=== PATIENT | male | born 1965 | race American Indian/Alaskan Native ===

== ENCOUNTER 2022-03-31 11:10 | Emergency (ER) | payer MEDICAID, OTHER ==
[2022-03-31] MEDS ORDERED: Sodium Chloride 0.9% 10 ML Syringe FLUSH PRN (11:18)
[2022-03-31] MEDS ORDERED: Sodium Chloride 0.9% 1,000 ML IV ONE ×3 (11:19→12:20)
[2022-03-31 11:41] VITALS: BP 130/95; PULSE 145
[2022-03-31] MEDS ORDERED: Acetaminophen 500 MG Tab PO ONE (11:45)
[2022-03-31] MEDS ORDERED: cefTRIAXone 2 GM in Sodium Chloride 0.9% 100 ML IV ONE (11:58)
[2022-03-31 12:04] LABS: ANION GAP 27.5 mEq/L (7-13); CHLORIDE,CL 94 mmol/L (98-107); SODIUM,NA 133 mmol/L (136-145)
[2022-03-31 12:05] LABS: ESTIMATED GFR 27 mL/min (>=60)
[2022-03-31] MEDS ORDERED: Piperacillin/Tazobactam 4.5 GM in Sodium Chloride 0.9% 100 ML IV ONE (12:06)
[2022-03-31 12:17] LABS: BASE EXCESS ARTERIAL -13 mmol/L ((-2)-(+3)); BICARBONATE,ARTERIAL 11.4 mmol/L (22-26); O2 SATURATION ARTERIAL 93 % (95-100); PCO2 ARTERIAL 24 mmHg (35-45); PO2 ARTERIAL 66 mmHg (70-100)
[2022-03-31 12:18] LABS: ALLEN TEST PERFORMED
[2022-03-31] MEDS ORDERED: Morphine 2 MG/ML SYRINGE IVPUSH ONE (12:36)
[2022-03-31 12:40] LABS: O2 DELIVERY DEVICE NASAL CANNULA
[2022-03-31 12:41] LABS: O2 FLOW RATE 10
[2022-03-31] MEDS ORDERED: Midazolam 1 MG/ML 2 ML SDV ONE ×2 (13:11→13:19)
[2022-03-31] MEDS ORDERED: fentaNYL 100 MCG/2 ML SDV ONE (13:11)
[2022-03-31] MEDS ORDERED: propofoL 100 ML IV SCH (13:30)
[2022-03-31 13:59] LABS: AMPHETAMINES,URINE NEGATIVE (NEGATIVE); BARBITURATES,URINE NEGATIVE (NEGATIVE); BENZODIAZEPINE,URINE NEGATIVE (NEGATIVE); MDMA (ECSTASY), URINE NEGATIVE (NEGATIVE); METHADONE,URINE NEGATIVE (NEGATIVE); METHAMPHETAMINES,URINE NEGATIVE (NEGATIVE); OPIATES,URINE NEGATIVE (NEGATIVE); OXYCODONE,URINE NEGATIVE (NEGATIVE); PHENCYCLIDINE,URINE NEGATIVE (NEGATIVE); TCA,URINE NEGATIVE (NEGATIVE)
[2022-03-31] MEDS ORDERED: propofoL 100 ML ONE (14:59)
== END 2022-03-31 15:40 ==
LOC: DL.ED 11:10
DX: A41.9 Sepsis, unspecified organism (principal); J18.9 Pneumonia, unspecified organism; N17.9 Acute kidney failure, unspecified; E87.20 Acidosis, unspecified; J44.9 Chronic obstructive pulmonary disease, unspecified; Z20.822 Contact with and (suspected) exposure to COVID-19
CPT/HCPCS: 31500; 36415; 36600; 43752; 51702; 71045; 80053; 80305; 80307; 81001; 82803; 83605; 83735; 84145; 85025; 86140; 87040; 87070; 87077; 87186; 87205; 87635; 93005; 96361; 96365; 96366; 96368; 96375; 99285; A9270; J2270; J2543; J2704; J3370; J7030; J7040; U0002

== ENCOUNTER 2024-01-01 22:03 | Emergency (ER) | payer SELFPAY ==
[2024-01-01 22:20] VITALS: BP 141/93; PULSE 88
[2024-01-01] MEDS: Ketorolac 30 MG/ML SDV IM ONE (23:25)
== END 2024-01-01 23:31 | disposition home or self-care (01) ==
LOC: DL.ED 22:03
DX: M79.602 Pain in left arm (principal); M79.601 Pain in right arm; M79.605 Pain in left leg; M79.604 Pain in right leg; J44.9 Chronic obstructive pulmonary disease, unspecified; Z90.49 Acquired absence of other specified parts of digestive tract
CPT/HCPCS: 96372; 99283; J1885

== ENCOUNTER 2024-02-03 09:16 | Emergency (ER) | payer SELFPAY ==
[2024-02-03] MEDS ORDERED: Sodium Chloride 0.9% 10 ML Syringe FLUSH PRN (09:17)
[2024-02-03 09:47] LABS: BASOPHILS PERCENT AUTO 1.1 % (0.0-1.0); HEMATOCRIT 38.7 % (40.0-54.0); HEMOGLOBIN 13.6 g/dL (14.0-18.0); LYMPHOCYTES PERCENT AUTO 38.9 % (20.5-50.1); MEAN CORPUSCULAR HEMOGLOBIN 33.3 pg (27.0-34.0); MEAN CORPUSCULAR HGB CONC 35.1 g/dL (33.0-35.0); MEAN CORPUSCULAR VOLUME 94.9 fL (80-100); MONOCYTES PERCENT AUTO 6.6 % (2-8); NEUTROPHILS PERCENT AUTO 50.4 % (42.2-75.2); PLATELET COUNT,PLT 77 10^3/uL (150-450); RED BLOOD CELL COUNT 4.08 10^6/uL (4.6-6.2); WHITE BLOOD CELL COUNT,WBC 7.4 10^3/uL (5.0-10.0)
[2024-02-03 09:50] VITALS: BP 146/109; PULSE 105
[2024-02-03 09:57] LABS: ALBUMIN 3.2 g/dL (3.4-5.0); BILIRUBIN TOTAL 1.6 mg/dL (0.2-1.0); BUN/CREATININE RATIO 8.7 (No establ ref range); CALCIUM 8.5 mg/dL (8.5-10.1); CREATININE 1.03 mg/dL (0.70-1.30); EST CRCL DRUG DOSING (CG) 81.23 mL/min; MAGNESIUM 1.6 mg/dL (1.8-2.4)
[2024-02-03 09:58] LABS: A/G RATIO 0.47
[2024-02-03 10:02] LABS: INR 1.2 (0.9-1.2); PROTHROMBIN TIME 11.9 SEC (9.0-12.0); PTT,PARTIAL THROMBOPLSTIN TIME 30.4 SEC (22.0-34.0)
[2024-02-03 10:31] LABS: AMPHETAMINES,URINE NEGATIVE (NEGATIVE); BARBITURATES,URINE NEGATIVE (NEGATIVE); BENZODIAZEPINE,URINE NEGATIVE (NEGATIVE); MDMA (ECSTASY), URINE NEGATIVE (NEGATIVE); METHADONE,URINE NEGATIVE (NEGATIVE); METHAMPHETAMINES,URINE NEGATIVE (NEGATIVE); OPIATES,URINE NEGATIVE (NEGATIVE); OXYCODONE,URINE NEGATIVE (NEGATIVE); PHENCYCLIDINE,URINE NEGATIVE (NEGATIVE); TCA,URINE NEGATIVE (NEGATIVE)
[2024-02-03] MEDS: Magnesium Sulfate/Water 2 GM in Premix Bag 1 BAG IV ONE (10:46)
[2024-02-03] MEDS: Potassium Chloride 10 MEQ Tab.ER PO ONE (10:47)
[2024-02-03] MEDS: Potassium Chloride 20 MEQ in Premix Bag 1 BAG IV ONE (11:05)
[2024-02-03 11:20] LABS: APPEARANCE,URINE SLIGHTLY CLOUDY (CLEAR); BILIRUBIN,URINE NEGATIVE (NEGATIVE); COLOR,URINE DARK YELLOW (YELLOW); GLUCOSE,URINE NEGATIVE (NEGATIVE); KETONES,URINE NEGATIVE (NEGATIVE); LEUKOCYTE ESTERASE,URINE NEGATIVE (NEGATIVE); NITRITE,URINE NEGATIVE (NEGATIVE); OCCULT BLOOD,URINE NEGATIVE (NEGATIVE); PH,URINE 6.5 (5.0-9.0); PROTEIN,URINE 30 (NEGATIVE)
[2024-02-03 11:33] LABS: BACTERIA,URINE FEW /HPF (0-FEW/HPF); EPITHELIAL CELLS,URINE FEW /HPF (NOT SEEN); MUCUS,URINE MANY /LPF (NOT SEEN); RBC,URINE 0-5 /HPF (0-5); WBC,URINE 0-5 /HPF (0-5/HPF)
[2024-02-03] MEDS: Sodium Chloride 0.9% 1,000 ML IV ONE (11:45)
== END 2024-02-03 14:13 | disposition home or self-care (01) ==
LOC: DL.ED 09:16
DX: R07.89 Other chest pain (principal); E87.6 Hypokalemia; E83.42 Hypomagnesemia; R74.01 Elevation of levels of liver transaminase levels; R79.89 Other specified abnormal findings of blood chemistry; J44.9 Chronic obstructive pulmonary disease, unspecified; E11.9 Type 2 diabetes mellitus without complications; Z90.49 Acquired absence of other specified parts of digestive tract; Z87.891 Personal history of nicotine dependence
CPT/HCPCS: 36415; 71045; 80053; 80305-QW; 80307; 81001; 83690; 83735; 84484; 85025; 85610; 85730; 93005; 93010; 96361; 96365; 96366; 96368; 99284; 99285-25; A9270-GY; J3475; J3480; J7030

== ENCOUNTER 2024-03-07 15:52 | Emergency (ER) | payer OTHER ==
[2024-03-07] MEDS: Sulfamethoxazole/Trimethoprim 800-160 MG Tab PO ONE (16:20)
[2024-03-07] MEDS: Mupirocin Oint 22 GM Tube TOP ONE (16:20)
[2024-03-07 16:44] VITALS: BP 134/89; PULSE 92
== END 2024-03-07 16:32 | disposition home or self-care (01) ==
LOC: DL.ED 15:52
DX: B85.0 Pediculosis due to Pediculus humanus capitis (principal); L01.00 Impetigo, unspecified; J44.9 Chronic obstructive pulmonary disease, unspecified; Z90.49 Acquired absence of other specified parts of digestive tract
CPT/HCPCS: 99283; A9270-GY

== ENCOUNTER 2024-04-07 16:04 | Emergency (ER) | payer SELFPAY ==
[2024-04-07] MEDS: Dexamethasone 4 MG/ML SDV IM ONE (16:16)
[2024-04-07] MEDS: Lidocaine/Prilocaine 2.5-2.5% Crm 5 GM Tube TOP ONE (16:17)
[2024-04-07 16:44] VITALS: BP 92/69; PULSE 80
== END 2024-04-07 16:55 | disposition home or self-care (01) ==
LOC: DL.ED 16:04
DX: B02.9 Zoster without complications (principal); J44.9 Chronic obstructive pulmonary disease, unspecified; Z90.49 Acquired absence of other specified parts of digestive tract
CPT/HCPCS: 96372; 99283; A9270-GY; J1100

== ENCOUNTER 2024-08-09 18:59 | Emergency (ER) | payer SELFPAY ==
[2024-08-09 19:00] VITALS: BP 108/62; PULSE 68
== END 2024-08-09 20:59 | disposition left against medical advice (07) ==
LOC: DL.ED 18:59
DX: Z53.21 Procedure and treatment not carried out due to patient leaving prior to being seen by health care provider (principal)

== ENCOUNTER 2024-09-05 08:36 | Emergency (ER) | payer SELFPAY ==
[2024-09-05] MEDS: Sodium Chloride 0.9% 500 ML IV SCH (08:50)
[2024-09-05 08:58] LABS: BASOPHILS PERCENT AUTO 0.9 % (0.0-1.0); EOSINOPHILS PERCENT AUTO 0.4 % (1.0-3.0); HEMOGLOBIN 13.5 g/dL (14.0-18.0); LYMPHOCYTES PERCENT AUTO 39.1 % (20.5-50.1); MEAN CORPUSCULAR HEMOGLOBIN 31.6 pg (27.0-34.0); MEAN CORPUSCULAR HGB CONC 34.6 g/dL (33.0-35.0); MEAN CORPUSCULAR VOLUME 91.3 fL (80-100); MONOCYTES PERCENT AUTO 8.5 % (2-8); NEUTROPHILS PERCENT AUTO 51.1 % (42.2-75.2); PLATELET COUNT,PLT 90 10^3/uL (150-450); RED BLOOD CELL COUNT 4.27 10^6/uL (4.6-6.2); WHITE BLOOD CELL COUNT,WBC 7.7 10^3/uL (5.0-10.0)
[2024-09-05 09:20] LABS: ALBUMIN 3.2 g/dL (3.4-5.0); BILIRUBIN DIRECT 0.4 mg/dL (0.0-0.2); BILIRUBIN INDIRECT 0.6; CALCIUM 8.5 mg/dL (8.5-10.1); CREATININE 1.04 mg/dL (0.70-1.30); EST CRCL DRUG DOSING (CG) 79.44 mL/min; PROTEIN TOTAL,TP 9.4 g/dL (6.4-8.2)
[2024-09-05 09:21] LABS: A/G RATIO 0.52
[2024-09-05 09:45] LABS: APPEARANCE,URINE SLIGHTLY CLOUDY (CLEAR); COLOR,URINE DARK YELLOW (YELLOW)
[2024-09-05 09:46] LABS: BILIRUBIN,URINE SMALL (NEGATIVE); GLUCOSE,URINE NEGATIVE (NEGATIVE); KETONES,URINE TRACE (NEGATIVE); LEUKOCYTE ESTERASE,URINE NEGATIVE (NEGATIVE); NITRITE,URINE NEGATIVE (NEGATIVE); OCCULT BLOOD,URINE LARGE (NEGATIVE); PROTEIN,URINE >=300 (NEGATIVE)
[2024-09-05 09:56] LABS: AMORPHOUS SEDIMENT,URINE FEW /HPF (NOT SEEN); BACTERIA,URINE FEW /HPF (0-FEW/HPF); EPITHELIAL CELLS,URINE RARE /HPF (NOT SEEN); MUCUS,URINE MODERATE /LPF (NOT SEEN); WBC,URINE 0-5 /HPF (0-5/HPF)
[2024-09-05 09:57] LABS: HYALINE CASTS,URINE FEW
[2024-09-05] MEDS: Potassium Chloride 10 MEQ Tab.ER PO ONE (11:18)
[2024-09-05] MEDS: Aspirin 325 MG Tab PO ONE (11:34)
[2024-09-05 11:39] VITALS: BP 135/92; PULSE 107
== END 2024-09-05 11:49 | disposition home or self-care (01) ==
LOC: DL.ED 08:36
DX: M25.562 Pain in left knee (principal); M25.561 Pain in right knee; R53.1 Weakness; R79.89 Other specified abnormal findings of blood chemistry; F10.920 Alcohol use, unspecified with intoxication, uncomplicated; J44.9 Chronic obstructive pulmonary disease, unspecified; Z90.49 Acquired absence of other specified parts of digestive tract
CPT/HCPCS: 36415; 70450; 71045; 80048; 80076; 80307; 81001; 84484; 85025; 87040; 93005; 99285; A9270; J7030; 93010; 99284